=== PATIENT | female | born 1945 | race Caucasian/White ===

== ENCOUNTER → 2017-08-02 | Outpatient (CLI) | payer OTHER ==
[~2017-08-02] MED LIST: ACET325 PO; BACL20 PO; Bactrim Ds Tab1 EACH PO; CLON1; CLON1 PO; CLON2; CLOT1TC TOP; CODACE30; CYAFAPYR PO; Chewable-Vite1 EAC1 PO; DONE10 PO; Docu Liqui50 MG/5 ML PO; ERGO50000 PO; ESCI10; LAVAP17G; LEVCAR2510; LEVCAR50ER; LEVSOD100; LEVSOD125; LEVSOD137 PO; LIDO5TP TOP; OLAN10; OLAN2.5; OXYC1TAB11 PO; PERM5TC TOP; PHENA100; QUET100 PO; QUET25 PO; RALO60; RXCODACET; RYTARY ER 61.21 EACH PO; SULTRIDS PO; Sudogest60 MG PO; TIZANIDINE HCL2 MG PO; VENL75ER PO; [UNRECOGNIZED DRUG - OTHER]; [UNRECOGNIZED DRUG - OTHER] PO; [UNRECOGNIZED DRUG - REMARK]
== END ==
LOC: LAB SHORT 15:54 → OLS 15:54
DX: B95.61 Methicillin susceptible Staphylococcus aureus infection as the cause of diseases classified elsewhere (principal)
CPT/HCPCS: 87070; 87077; 87186; 87205

== ENCOUNTER → 2017-09-16 | Outpatient (CLI) | payer OTHER | LOC: OLS 13:30 → LAB SHORT 13:30 | DX: A49.02 Methicillin resistant Staphylococcus aureus infection, unspecified site (principal) | CPT/HCPCS: 87070; 87077; 87186; 87205 ==

== ENCOUNTER 2017-10-09 15:43 | Emergency (ER) | payer OTHER ==
[~2017-10-09] VITALS: Ht 147.3 cm; Wt 32.2 kg
[2017-10-09] MEDS ORDERED: NUPLAZID17 MG PO (17:14)
== END 2017-10-09 20:28 | disposition home or self-care (01) ==
LOC: ER 15:43
DX: G92 Toxic encephalopathy (principal); T40.2X5A Adverse effect of other opioids, initial encounter; G31.83 Neurocognitive disorder with Lewy bodies; F02.80 Dementia in other diseases classified elsewhere, unspecified severity, without behavioral disturbance, psychotic disturbance, mood disturbance, and anxiety; E03.9 Hypothyroidism, unspecified; F32.9 Major depressive disorder, single episode, unspecified; Z79.899 Other long term (current) drug therapy
CPT/HCPCS: 99284

== ENCOUNTER → 2017-11-23 | Outpatient (CLI) | payer OTHER ==
[~2017-11-23] MED LIST changes: +(None)15 G1 TOP; +AZELASTINE137 MCG/0. INH; +AZIT250 PO; +Artificial Tea1 EACH BOTHEYES; +Augmentin250 MG/5 M PO; +CHLORHEXIDINE FL1 ML PO; +Calci-Chew500 MG PO; +LEVSOD125 PO; -LEVSOD137 PO; +LEVSOD150 PO; -LIDO5TP TOP; +LIDO700A20; +MULTI-VITE9 MG/15 ML PO; +NUPLAZID17 MG PO; +Nystatin15 GM TOP; +OXYC10TA19 PO; +RYTARY ER 23.71 EACH PO; +SACC250C PO; +SIMETHICONE125 MG PO
== END | disposition home or self-care (01) ==
LOC: LAB SHORT 13:47 → LAB 13:47
DX: A49.02 Methicillin resistant Staphylococcus aureus infection, unspecified site (principal)
CPT/HCPCS: 87070; 87077; 87186; 87205

== ENCOUNTER 2018-01-24 07:52 | Day surgery (SDC) | payer OTHER | END 2018-01-24 23:12 | disposition home or self-care (01) | LOC: WOUND 07:52 | DX: L89.312 Pressure ulcer of right buttock, stage 2 (principal); G20 Parkinson's disease | CPT/HCPCS: 87070; 87147; 87186; 87205; G0463 ==